=== PATIENT | female | born 1970 | race Caucasian/White ===

== ENCOUNTER 2025-06-04 08:18 | Outpatient (CLI) | payer OTHER ==
[2025-06-04] MEDS ORDERED: Iopamidol 370 76% 100 ML VIAL ONE (11:37)
== END 2025-06-04 08:19 | disposition home or self-care (01) ==
LOC: CSHCT 08:18
PROVIDERS: ATTEND Specialist
DX: D37.032 Neoplasm of uncertain behavior of the submandibular salivary glands (principal); K11.0 Atrophy of salivary gland; R59.0 Localized enlarged lymph nodes
CPT/HCPCS: 70492; Q9967